=== PATIENT | female | born 1975 | race Caucasian/White ===

== ENCOUNTER 2021-03-11 17:11 | Emergency (ER) | payer OTHER ==
[2021-03-11 17:19] VITALS: O2SAT 100
[2021-03-11] MEDS ORDERED: Sodium Chloride 0.9% 1000 ML 1,000 ML IV STA (17:25)
[2021-03-11] MEDS ORDERED: Zofran 4 MG/2 ML VIAL IV ONE (17:25)
[2021-03-11] MEDS ORDERED: SUBLIMAZE 100 MCG/2 ML IV ONE ×2 (17:25→21:04)
[2021-03-11] MEDS ORDERED: Zofran 4 MG/2 ML VIAL ONE (17:31)
[2021-03-11] MEDS ORDERED: SUBLIMAZE 100 MCG/2 ML ONE ×2 (17:31→21:25)
[2021-03-11] MEDS ORDERED: Sodium Chloride 0.9% 1000 ML 1,000 ML ONE (17:32)
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
[2021-03-11] MEDS ORDERED: Adacel Vial IM ONE ×2 (19:41→19:57)
[2021-03-11 20:11] LABS: ALBUMIN 4.1 g/dL (3.5-5.0); ALKALINE PHOSPHATASE 62 U/L (38-126); ANION GAP 14.8 MEQ/L (5-15); BLOOD UREA NITROGEN 15 mg/dL (7-17); CHLORIDE 104 mmol/L (98-107); Carbon Dioxide 22 mmol/L (22-30); Creatinine 1 0.93 mg/dL (0.52-1.04); EST GLOMERULAR FILTRATION RATE > 60.0 ML/MIN; Glucose 112 mg/dL (74-106); LIPASE 44 U/L (23-300); SGOT/AST 27 U/L (14-36); SGPT/ALT 15 U/L (0-35); SODIUM 137 mmol/L (137-145); Total Protein 7.3 g/dL (6.3-8.2)
[2021-03-11 20:13] LABS: Absolute Neutrophil Ct (ANC) 9.09 (1.4-6.9); BASOPHIL % 0.2 % (0.0-0.4); Basophil (Absolute #) 0.02 (0-0.4); Eosinophil % 0.1 % (0.00-5.0); Eosinophil (Absolute #) 0.01 (0-0.5); Hematocrit 41.1 % (35-47); Hemoglobin 13.2 gm/dl (12.0-16.0); Lymphocyte (Absolute #) 1.08 (1.0-4.6); Lymphocytes % 10.3 % (24.0-44.0); Mean Cell Volume 86.2 fl (78-100); Mean Corpuscular Hemoglobin 27.7 pg (26-32); Mean Corpuscular Hgb Concent. 32.1 g/dl (32-36); Mean Platelet Volume 9.6 fl (7.5-11.0); Monocyte (Absolute #) 0.32 (0.0-1.3); Neutrophil % 86.4 % (36.0-66.0); Platelet Count 294 K/mm3 (150-450); Red Blood Count 4.77 M/mm3 (4.1-5.4); Red Cell Distribution Width 13.2 % (11.5-14.0); White Blood Count 10.5 K/mm3 (4.0-10.5)
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
[2021-03-11 21:51] LABS: Appearance CLEAR (CLEAR); Bacteria FEW /HPF (NEGATIVE); Bilirubin NEGATIVE (NEGATIVE); Blood NEGATIVE Ery/ul (0-5); Glucose NEGATIVE (NEGATIVE); Ketones NEGATIVE (NEGATIVE); Leukocyte Esterase TRACE (NEGATIVE); Mucus SLIGHT /HPF (NEGATIVE); Nitrite POSITIVE (NEGATIVE); Protein,Urine Dip NEGATIVE (Negative); RBC 0-2 /HPF (0-2); Specific Gravity 1.047 (1.005-1.025); Urobilinogen NEGATIVE mg/dL (0-1); WBC 0-2 /HPF (0-5)
[2021-03-11 22:01] LABS: Barbiturate,Urine NEGATIVE (NEGATIVE); Benzodiazepine,Urine NEGATIVE (NEGATIVE); Cocaine,Urine NEGATIVE (NEGATIVE); Methadone,Urine NEGATIVE (NEGATIVE); Opiate,Urine NEGATIVE (NEGATIVE); PCP,Urine NEGATIVE (NEGATIVE); THC,Urine NEGATIVE (NEGATIVE)
[2021-03-11 22:09] VITALS: BP 130/75; PULSE 99
[2021-03-11 22:27] LABS: Amphetamine,Urine POSITIVE (NEGATIVE)
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
== END 2021-03-11 23:02 | disposition short-term general hospital (02) ==
LOC: ED 17:11
DX: S27.329A Contusion of lung, unspecified, initial encounter (principal); T58.11XA Toxic effect of carbon monoxide from utility gas, accidental (unintentional), initial encounter; T21.4 Corrosion of unspecified degree of trunk; T79.8XXA Other early complications of trauma, initial encounter; Y93.89 Activity, other specified; Y92.89 Other specified places as the place of occurrence of the external cause; W31.89XA Contact with other specified machinery, initial encounter; Y93.H9 Activity, other involving exterior property and land maintenance, building and construction
CPT/HCPCS: 36000; 36415; 70450; 71045; 71260; 72125; 72131; 72170; 74177; 80053; 80307; 81001; 83605; 83690; 84703; 85025; 87077; 87086; 87186; 90471; 90715; 93005; 96374; 96375; 96376; 99285; J2405; J3010

== ENCOUNTER 2023-08-30 05:59 | Day surgery (SDC) | payer OTHER ==
[2023-08-30 06:16] VITALS: RESP 18
[2023-08-30] MEDS: Lactated Ringers 1,000 ML IV SCH (06:22)
[2023-08-30 06:41] LABS: HCG SERUM TEST NEGATIVE (NEGATIVE)
[2023-08-30 06:46] LABS: ANION GAP 9.8 MEQ/L (5-15); BILIRUBIN,TOTAL 0.6 mg/dL (0.2-1.3); Calcium 9.2 mg/dL (8.4-10.2); Creatinine 1 0.67 mg/dL (0.52-1.04); EST GLOMERULAR FILTRATION RATE 109.1 ML/MIN; Potassium 4.5 mmol/L (3.5-5.1)
[2023-08-30] MEDS ORDERED: Decadron 4 MG INJ ONE (06:50)
[2023-08-30] MEDS ORDERED: Pre-Attached Lta Kit TP ONE (06:50)
[2023-08-30] MEDS ORDERED: Versed 2 MG/2 ML Injection ONE (06:50)
[2023-08-30] MEDS ORDERED: TORAdol 30 mg Injection ONE (06:50)
[2023-08-30] MEDS ORDERED: Zofran 4 MG/2 ML VIAL ONE (06:50)
[2023-08-30] MEDS ORDERED: SUBLIMAZE 100 MCG/2 ML ONE ×2 (06:50→07:32)
[2023-08-30] MEDS ORDERED: DIPRIVAN 200 MG/20 ML IV ONE (06:50)
[2023-08-30 06:56] LABS: Hematocrit 43.2 % (35-47); Mean Cell Volume 85.2 fL (78-100); Mean Corpuscular Hemoglobin 27.6 pg (26-32); Mean Corpuscular Hgb Concent. 32.4 g/dL (32-36); Mean Platelet Volume 9.6 fL (7.5-11.0); Platelet Count 332 x10^3/uL (150-450); Red Blood Count 5.07 x10^6/uL (4.1-5.4); Red Cell Distribution Width 14.4 % (11.5-14.0); White Blood Count 8.2 x10^3/uL (4.0-10.5)
[2023-08-30 08:18] VITALS: TEMP 97.6; O2SAT 98
[2023-08-30 08:21] VITALS: BP 117/74; PULSE 67
[2023-08-30] MEDS ORDERED: Quelicin Fliptop 200 MG/10 ML ONE (12:05)
--- NOTE | 2023-08-30 13:05 | OP ---
DATE OF PROCEDURE: 08/30/2023 0704 PREOPERATIVE DIAGNOSIS: Left shoulder adhesive capsulitis. POSTOPERATIVE DIAGNOSIS: Left shoulder adhesive capsulitis. PROCEDURE: Left shoulder manipulation under anesthesia. ATTENDING PHYSICIAN: Ollie Dailey M.D. ANESTHESIA: General. FINDINGS: Tight shoulder, after manipulation. The patient has 180 flexion, 170 abduction, could internally rotate 90 degrees, externally rotate 90 degrees. INDICATIONS FOR PROCEDURE: The patient is a 48-year-old white female with painful right shoulder with a small labral tear and adhesive capsulitis. It is felt she would benefit from manipulation to regain motion. DESCRIPTION OF PROCEDURE: Patient was seen in the holding area. The left shoulder is correct. This is initialed by me. She was taken to the operating room where she had general anesthesia. She was positioned supine. She had time out performed by me. She had gentle manipulation in internal and external rotation, abduction, adduction, flexion and extension. There was a small pop and the patient regained motion as mentioned above. There were no complications. The patient was left stable in the OR. PLAN: The patient is to start immediate physical therapy. She will have [place] 7.5 mg 1 every 6 hours script #20. I will see her back in three weeks. She already has physical therapy scheduled and she is starting immediately. She may lift as tolerated.
== END 2023-08-30 08:35 | disposition home or self-care (01) ==
LOC: SDC 05:59
PROVIDERS: ATTEND Orthopaedic Surgery
DX: M75.02 Adhesive capsulitis of left shoulder (principal); S43.432A Superior glenoid labrum lesion of left shoulder, initial encounter
CPT/HCPCS: 36415; 80053; 84703; 85027; 93005; J0330; J1100; J1885; J2250; J2405; J2704; J3010

== ENCOUNTER 2023-10-21 06:01 | Day surgery (SDC) | payer OTHER ==
[2023-10-21 06:14] LABS: HCG URINE TEST NEGATIVE (NEGATIVE)
[2023-10-21] MEDS: Lactated Ringers 1,000 ML IV SCH (06:36)
[2023-10-21] MEDS ORDERED: DIPRIVAN 200 MG/20 ML IV ONE ×2 (07:50→08:05)
[2023-10-21] MEDS ORDERED: Xylocaine-Mpf 2% 5 Ml Vial ONE (07:50)
[2023-10-21] MEDS ORDERED: Versed 2 MG/2 ML Injection ONE (07:51)
[2023-10-21 08:57] VITALS: RESP 16; O2SAT 99
[2023-10-21 09:07] VITALS: BP 104/76; PULSE 65; TEMP 97.7
--- NOTE | 2023-10-21 13:04 | OP ---
SURGERY DATE/TIME: 10/21/2023 0753 PREOPERATIVE DIAGNOSIS: Screening exam. POSTOPERATIVE DIAGNOSIS: Two polyps removed from the rectum and rectosigmoid are using hot polypectomy snare. PROCEDURE: Colonoscopy. SURGEON: Dr. Neil Alonzo. ANESTHESIA: Medications given by anesthesia department. HISTORY: The patient is a 48-year-old white female presenting now for colonoscopic evaluation for screening. The patient was appraised of the risks of the procedure including the risk of perforation, phlebitis, untoward reaction to medication, bleeding and missed lesions. The patient verbalized her understanding and desired to have the procedure performed. DESCRIPTION OF PROCEDURE: The patient was given the medications by the anesthesia department. She had continuous pulse oximetry, ECG monitoring and intermittent blood pressure monitoring during the examination. She was placed in the left lateral decubitus position. A digital rectal examination was performed and revealed normal anal sphincter tone and no masses. The flexible Olympus pediatric colonoscope was used to intubate the rectum. A view of the colon was developed sequentially to the cecum. Upon insertion and withdrawal were noted two polyps measuring approximately 1.5 cm and 1 cm in the rectosigmoid and rectal areas. These were removed using hot polypectomy snare and retrieved for pathologic evaluation. No other mucosal lesions being encountered the scope was removed the patient who tolerated the procedure well and sent back to outpatient recovery in good condition. The prep was noted to be fair to good.
== END 2023-10-21 09:15 | disposition home or self-care (01) ==
LOC: SDC 06:01
PROVIDERS: ATTEND Family Medicine
DX: Z12.11 Encounter for screening for malignant neoplasm of colon (principal); D12.7 Benign neoplasm of rectosigmoid junction; D12.5 Benign neoplasm of sigmoid colon
CPT/HCPCS: 81025; J2250; J2704